=== PATIENT | male | born 1945 | race Caucasian/White ===

== ENCOUNTER → 2018-04-18 | Outpatient (CLI) | payer OTHER | LOC: CLAB 16:56 | PROVIDERS: ATTEND Internal Medicine | DX: M53.82 Other specified dorsopathies, cervical region (principal); M43.12 Spondylolisthesis, cervical region | CPT/HCPCS: 72050-PO ==

== ENCOUNTER → 2018-08-15 | Outpatient (CLI) | payer OTHER ==
[~2018-08-15] MED LIST: IOPAMIDOL (ISOVUE-300) 100 ML BTL ONE
== END ==
LOC: FIMAGING 16:16
PROVIDERS: ATTEND Internal Medicine
DX: K57.30 Diverticulosis of large intestine without perforation or abscess without bleeding (principal); N28.1 Cyst of kidney, acquired
CPT/HCPCS: 82565-PO; Q9967

== ENCOUNTER 2019-01-03 16:10 | Emergency (ER) | payer BC, OTHER ==
[2019-01-03 16:17] VITALS: BP 134/83
--- NOTE | 2019-01-03 16:31 | EDPHY ---
H & P Stated Complaint: lost balance on ladder/3 ft inj r hand denies loc or neck pain abrasion to Time Seen by Provider: 01/03/19 16:18 HPI/ROS: Chief Complaint: Right hand injury HPI: The patient presents the ED with complaints of right hand pain after he tripped and fell at home. The patient sustained a direct blow along the ulnar aspect of his right hand. The patient denies any additional injury. He has moderate pain with palpation. REVIEW OF SYSTEMS: Neuro: no headache, numbness, weakness Musculoskeletal: as above Skin: no abrasion or lacerations Source: Patient Exam Limitations: No limitations - Personal History Current Tetanus Diphtheria and Acellular Pertussis (TDAP): Yes - Medical/Surgical History Hx Asthma: No Hx Chronic Respiratory Disease: No Hx Diabetes: No Hx Cardiac Disease: No Hx Renal Disease: No Hx Cirrhosis: No Hx Alcoholism: No Hx HIV/AIDS: No Hx Splenectomy or Spleen Trauma: No Other PMH: denies - Social History Smoking Status: Never smoked - Physical Exam Exam: General: No acute distress Right hand: Tenderness to palpation over the right 5th metacarpal. Normal range of motion noted in the fingers. Vascular: Normal capillary refill Neuro: Sensation intact to light touch Constitutional: Initial Vital Signs Temperature (C) 36.5 C 01/03/19 16:13 Heart Rate 66 01/03/19 16:13 Respiratory Rate 17 01/03/19 16:13 Blood Pressure 134/83 H 01/03/19 16:13 O2 Sat (%) 95 01/03/19 16:13 O2 Delivery Mode Room Air Allergies/Adverse Reactions: No Known Allergies Allergy (Verified 01/03/19 16:12) Home Medications: Medication Instructions Recorded ATORVASTATIN CALCIUM [Lipitor 80 80 mg PO DAILY 11/24/11 mg] Ezetimibe [Zetia] 10 mg PO 11/24/11 Hydrocodone/APAP 5/325 [[place] 1 - 2 each PO Q6 PRN #20 tab 01/03/19 5/325] Medical Decision Making - Diagnostics Imaging Results: Right hand x-ray: Spiral fracture noted involving the 5th metacarpal. Images reviewed by myself. Procedures: Procedure: Splint placement. A ortho glass ulnar gutter splint was applied to the right upper extremity by the tech. After application of the splint I returned and re-examined the patient. The splint was adequately immobilizing the joint and distal to the splint the patient's circulation and sensation was intact. ED Course/Re-evaluation: Patient presents to the ED for evaluation of right head injury. He is noted to have an oblique fracture involving the 5th metacarpal. Patient has been placed in an ulnar gutter splint. Patient will be referred to Dr. Her our on-call hand surgeon. Differential Diagnosis: Differential diagnosis considered includes fracture, sprain, dislocation Departure - Departure Disposition: Home, Routine, Self-Care Clinical Impression: Metacarpal bone fracture Qualifiers: Encounter type: initial encounter Metacarpal bone: fifth Fracture type: closed Metacarpal location: shaft Fracture alignment: nondisplaced Laterality: right Qualified Code(s): S62.356A - Nondisplaced fracture of shaft of fifth metacarpal bone, right hand, initial encounter for closed fracture Condition: Good Instructions: Hand Fracture (ED) Additional Instructions: 1. Please contact the orthopedic surgeon you have been referred to to schedule a follow-up visit. Please wear splint until that time. 2. Take Ibuprofen or Motrin 600 mg by mouth three times a day. 3. [place] as needed for severe pain Referrals: Sam Her MD [Medical Doctor] - As per Instructions
== END 2019-01-03 16:57 | disposition home or self-care (01) ==
PROC: 2W3EX1Z Immobilization of Right Hand using Splint (ICD-10-PCS; principal; 2019-01-03)
DX: S62.356A Nondisplaced fracture of shaft of fifth metacarpal bone, right hand, initial encounter for closed fracture (principal); W01.198A Fall on same level from slipping, tripping and stumbling with subsequent striking against other object, initial encounter; Y92.009 Unspecified place in unspecified non-institutional (private) residence as the place of occurrence of the external cause